=== PATIENT | female | born 1940 | race Caucasian/White ===

== ENCOUNTER → 2022-03-18 | Outpatient (CLI) | payer MEDICARE, OTHER | LOC: M WHC 09:46 | PROVIDERS: ATTEND Family Medicine | DX: Z12.31 Encounter for screening mammogram for malignant neoplasm of breast (principal); M81.0 Age-related osteoporosis without current pathological fracture ==

== ENCOUNTER 2022-12-11 02:44 | Observation (INO) | payer MEDICARE, BC ==
[~2022-12-11] VITALS: Ht 152.4 cm; Wt 87.6 kg
[2022-12-11] MEDS ORDERED: METOPROLOL TART 25 MG TABLET PO ONE (03:40)
[2022-12-11 04:01] LABS: BASO # 0.1 10^3/uL (0.0-0.2); BASO % 0.8 % (0.0-1.0); EOS # 0.3 10^3/uL (0.0-0.5); EOS % 3.8 % (0.0-3.0); HEMATOCRIT 39.9 % (36.0-47.0); HEMOGLOBIN 13.4 g/dl (12.0-15.5); LYMPH # 2.1 10^3/uL (1.5-5.0); LYMPH % 27.8 % (24.0-44.0); MEAN CORPUSCULAR HEMOGLOBIN 31.2 pg (27.0-33.0); MEAN CORPUSCULAR HGB CONC 33.6 g/dl (32.0-36.5); MEAN CORPUSCULAR VOLUME 92.8 fl (80.0-96.0); MONO # 0.6 10^3/uL (0.0-0.8); MONO % 7.9 % (2.0-8.0); NEUTROPHILS # 4.4 10^3/uL (1.5-8.5); NEUTROPHILS % 59.4 % (36.0-66.0); PLATELET COUNT, AUTOMATED 275 10^3/uL (150-450); WHITE BLOOD COUNT 7.5 10^3/uL (4.0-10.0)
[2022-12-11 04:24] LABS: BLOOD UREA NITROGEN 21 MG/DL (9-23); CALCIUM LEVEL 8.3 MG/DL (8.3-10.6); CARBON DIOXIDE LEVEL 25 MMOL/L (20-31); CHLORIDE LEVEL 107 MMOL/L (98-107); CREATININE FOR GFR 0.86 MG/DL (0.55-1.30); GLOMERULAR FILTRATION RATE > 60.0 (>32); GLUCOSE, FASTING 116 MG/DL (74-106); MAGNESIUM LEVEL 2.1 MG/DL (1.8-2.4); POTASSIUM SERUM 4.6 MMOL/L (3.5-5.1); SODIUM LEVEL 140 MMOL/L (136-145)
[2022-12-11 04:26] LABS: FREE T4 1.27 NG/DL (0.89-1.76); THYROID STIMULATING HORMONE 2.439 uIU/ML (0.55-4.78)
[2022-12-11] MEDS: METOPROLOL 5 MG/5 ML VIAL IV SCH ×10 (04:30→06:03)
[2022-12-11] MEDS ORDERED: ISOVUE-370 76% 100ML VIAL As Ordered ONE (05:28)
[2022-12-11] MEDS ORDERED: ACETAMINOPHEN TAB 650MG DOSE (2X325MG) PO PRN (06:15)
[2022-12-11] MEDS ORDERED: ASPIRIN 81MG CHEW TABLET PO ONE (06:15)
[2022-12-11] MEDS ORDERED: SYNT112T2 PO (06:47)
[2022-12-11] MEDS ORDERED: METO25TA4 PO (06:47)
[2022-12-11] MEDS ORDERED: ELIQ5TAB PO (06:47)
[2022-12-11] MEDS ORDERED: ADVA115A INH (06:47)
[2022-12-11] MEDS ORDERED: TRAM50TA2 PO (06:47)
[2022-12-11] MEDS ORDERED: IRBE300T7 PO (06:47)
[2022-12-11] MEDS ORDERED: ALBU8.5H INH (06:47)
[2022-12-11] MEDS ORDERED: LORA-1041 PO (06:47)
[2022-12-11] MEDS ORDERED: OMEG10002 PO (06:47)
[2022-12-11] MEDS ORDERED: ACET-897 PO (06:47)
[2022-12-11] MEDS ORDERED: MELA1TAB9 PO (06:47)
[2022-12-11] MEDS ORDERED: HOME MED LIST COMPLETE! XX SCH (06:50)
[2022-12-11 07:54] LABS: PROCALCITONIN <0.04 ng/ml
[2022-12-11] MEDS: ADVAIR HFA 115/21MCG INHALER INH SCH ×2 (08:00→19:56)
[2022-12-11] MEDS ORDERED: ALBUTEROL 90 MCG/ACT 8GM HFA INHALER INH PRN (10:40)
[2022-12-11] MEDS ORDERED: traMADol 50 MG TAB PO PRN ×2 (10:40)
[2022-12-11 10:58] LABS: ALBUMIN 3.5 G/DL (3.2-5.2); ALKALINE PHOSPHATASE 101 U/L (46-116); ALT/SGPT 25 U/L (7.0-40); AST/SGOT 21 U/L (<34); BILIRUBIN,DIRECT 0.3 MG/DL (<0.4); BILIRUBIN,TOTAL 0.9 MG/DL (0.3-1.2); TOTAL PROTEIN 6.1 G/DL (5.7-8.2)
[2022-12-11] MEDS: METOPROLOL TART 25 MG TABLET PO SCH ×2 (12:23→17:49)
[2022-12-11 13:58] LABS: HEMOGLOBIN A1c 4.8 % (4.0-6.0)
[2022-12-11 16:04] VITALS: BP 138/84; TEMP 97.5; O2SAT 93
[2022-12-11 19:39] VITALS: BP 103/61; TEMP 98.3; O2SAT 95
[2022-12-11] MEDS: LEVALBUTEROL 1.25MG 0.5ML CONCENTRATE NEB INH SCH (19:56)
[2022-12-11] MEDS: APIXABAN 5 MG TAB (ELIQUIS) PO SCH (20:44)
[2022-12-11] MEDS ORDERED: METOPROLOL TART 25 MG TABLET PO SCH (21:00)
[2022-12-12 00:12] VITALS: BP 121/71; TEMP 96.6; O2SAT 94
[2022-12-12] MEDS: dilTIAZem 30 MG TAB PO SCH ×3 (00:29→12:11)
[2022-12-12] MEDS: LEVALBUTEROL 1.25MG 0.5ML CONCENTRATE NEB INH SCH ×2 (01:17→08:00)
[2022-12-12 04:01] VITALS: BP 106/59; TEMP 98.6; O2SAT 96
[2022-12-12 05:06] LABS: HEMATOCRIT 37.1 % (36.0-47.0); HEMOGLOBIN 12.4 g/dl (12.0-15.5); MEAN CORPUSCULAR HEMOGLOBIN 31.2 pg (27.0-33.0); MEAN CORPUSCULAR HGB CONC 33.4 g/dl (32.0-36.5); MEAN CORPUSCULAR VOLUME 93.5 fl (80.0-96.0); PLATELET COUNT, AUTOMATED 242 10^3/uL (150-450); RED BLOOD COUNT 3.97 10^6/uL (4.00-5.40)
[2022-12-12 05:41] LABS: BLOOD UREA NITROGEN 23 MG/DL (9-23); CALCIUM LEVEL 8.3 MG/DL (8.3-10.6); CARBON DIOXIDE LEVEL 29 MMOL/L (20-31); CHLORIDE LEVEL 106 MMOL/L (98-107); GLOMERULAR FILTRATION RATE > 60.0 (>32); GLUCOSE, FASTING 95 MG/DL (74-106); MAGNESIUM LEVEL 1.9 MG/DL (1.8-2.4); POTASSIUM SERUM 3.9 MMOL/L (3.5-5.1); SODIUM LEVEL 143 MMOL/L (136-145)
[2022-12-12] MEDS ORDERED: LEVOTHYROXINE 112MCG TABLET (0.112MG) PO SCH (06:00)
[2022-12-12 07:31] VITALS: BP 120/71; TEMP 98.2; O2SAT 96
[2022-12-12] MEDS: ADVAIR HFA 115/21MCG INHALER INH SCH (07:59)
[2022-12-12 08:02] LABS: CHOLESTEROL LEVEL 159 MG/DL (<200); CHOLESTEROL RISK RATIO 2.81 (<5); HDL CHOLESTEROL 56.4 MG/DL (>40); LDL CHOLESTEROL 86.6 MG/DL (<100); NON-HDL-C 102.6 MG/DL; TRIGLYCERIDES LEVEL 80 MG/DL (<150)
[2022-12-12] MEDS: APIXABAN 5 MG TAB (ELIQUIS) PO SCH (08:44)
[2022-12-12] MEDS ORDERED: VANICREAM MOISTURIZING SKIN CREAM 113GM TUBE TOP SCH (09:00)
[2022-12-12] MEDS ORDERED: ATOR1TAB21 PO (11:39)
[2022-12-12] MEDS ORDERED: DILT120C78 PO ×2 (11:39→12:50)
[2022-12-12] MEDS ORDERED: LEVAINH INH (11:39)
[2022-12-12 12:00] VITALS: BP_SYST 125; BP_SYST 133; BP_DIAS 60; BP_DIAS 74; TEMP 98.4; O2SAT 93; O2SAT 99
[2022-12-12 12:11] VITALS: BP 125/74
== END 2022-12-12 13:26 | disposition home or self-care (01) ==
LOC: EDBD 02:44 → M ED 02:44 → M ED INP 02:45 → M PCU 15:58
PROVIDERS: ADMIT Internal Medicine; ATTEND Internal Medicine
DX: R26.2 Difficulty in walking, not elsewhere classified (principal); R47.1 Dysarthria and anarthria; M79.602 Pain in left arm; R53.1 Weakness; R51.9 Headache, unspecified; I48.91 Unspecified atrial fibrillation; J98.4 Other disorders of lung; I51.7 Cardiomegaly; I25.10 Atherosclerotic heart disease of native coronary artery without angina pectoris; J45.909 Unspecified asthma, uncomplicated; E89.0 Postprocedural hypothyroidism; Z90.89 Acquired absence of other organs; R42 Dizziness and giddiness; M19.90 Unspecified osteoarthritis, unspecified site; R06.02 Shortness of breath; R07.9 Chest pain, unspecified; R93.5 Abnormal findings on diagnostic imaging of other abdominal regions, including retroperitoneum; I67.82 Cerebral ischemia; G31.9 Degenerative disease of nervous system, unspecified; I67.2 Cerebral atherosclerosis; Z88.2 Allergy status to sulfonamides; Z79.899 Other long term (current) drug therapy; Z79.890 Hormone replacement therapy; Z79.01 Long term (current) use of anticoagulants
CPT/HCPCS: 36415; 70450; 70544; 70547; 70551; 71045; 71275; 80048; 80061; 80076; 83036; 83735; 83880; 84145; 84439; 84443; 84484; 85025; 85027; 87635; 93005; 93041; 93306; 94640; 94760; 96374; 96375; 96376; 97116; 97161; 99285; G0378; Q9967

== ENCOUNTER → 2023-03-19 | Outpatient (CLI) | payer MEDICARE, BC ==
[~2023-03-19] MED LIST: ACET-897 PO; ADVA115A INH; ALBU8.5H INH; ATOR1TAB21 PO; DILT120C78 PO; ELIQ5TAB PO; IRBE300T7 PO; LEVAINH INH; LORA-1041 PO; MELA1TAB9 PO; METO25TA4 PO; OMEG10002 PO; SYNT112T2 PO; TRAM50TA2 PO
== END ==
LOC: M SLEEP 20:00
PROVIDERS: ATTEND Nurse Practitioner Family
DX: R40.0 Somnolence (principal); G47.33 Obstructive sleep apnea (adult) (pediatric)

== ENCOUNTER → 2023-05-09 | Outpatient (CLI) | payer MEDICARE, BC ==
[~2023-05-09] MED LIST changes: +IRBE300T25 PO; -IRBE300T7 PO
== END ==
LOC: M WHC 10:21
PROVIDERS: ATTEND Family Medicine
DX: Z12.31 Encounter for screening mammogram for malignant neoplasm of breast (principal)

== ENCOUNTER → 2024-07-12 | Outpatient (CLI) | payer MEDICARE, BC ==
[~2024-07-12] MED LIST changes: +LEVA15HF2 INH; -LEVAINH INH; -MELA1TAB9 PO; +MELA5TAB58 PO
== END ==
LOC: M WHC 11:47
PROVIDERS: ATTEND Family Medicine
DX: Z12.31 Encounter for screening mammogram for malignant neoplasm of breast (principal)

== ENCOUNTER 2024-08-09 04:47 | Emergency (ER) | payer MEDICARE, BC ==
[~2024-08-09] VITALS: Ht 152.4 cm; Wt 92.5 kg
[~2024-08-09 04:47] MED LIST changes: -HOLTER MONITOR XX; -MECL-86 PO
[2024-08-09 05:00] VITALS: BP 137/94; TEMP 97.1; O2SAT 97
[2024-08-09 05:15] VITALS: BP 147/79; O2SAT 97
[2024-08-09] MEDS ORDERED: ISOVUE-370 76% 100ML VIAL As Ordered ONE (05:18)
[2024-08-09 05:30] VITALS: BP 124/87; O2SAT 97
[2024-08-09 05:39] LABS: BASO % 0.5 % (0.0-1.0); EOS # 0.1 10^3/uL (0.0-0.5); EOS % 1.5 % (0.0-3.0); HEMATOCRIT 43.6 % (36.0-47.0); HEMOGLOBIN 14.8 g/dl (12.0-15.5); LYMPH # 1.8 10^3/uL (1.5-5.0); LYMPH % 27.7 % (24.0-44.0); MEAN CORPUSCULAR HEMOGLOBIN 31.8 pg (27.0-33.0); MEAN CORPUSCULAR HGB CONC 33.9 g/dl (32.0-36.5); MEAN CORPUSCULAR VOLUME 93.6 fl (80.0-96.0); MONO # 0.6 10^3/uL (0.0-0.8); MONO % 9.7 % (2.0-8.0); NEUTROPHILS % 60.3 % (36.0-66.0); PLATELET COUNT, AUTOMATED 274 10^3/uL (150-450); RED BLOOD COUNT 4.66 10^6/uL (4.00-5.40); WHITE BLOOD COUNT 6.6 10^3/uL (4.0-10.0)
[2024-08-09 05:45] VITALS: BP 116/72; O2SAT 97
[2024-08-09 05:52] LABS: ALBUMIN 3.7 G/DL (3.2-5.2); CALCIUM LEVEL 8.7 MG/DL (8.3-10.6); CREATININE FOR GFR 0.87 MG/DL (0.55-1.30); GLOMERULAR FILTRATION RATE 66.1 (>32); POTASSIUM SERUM 4.1 MMOL/L (3.5-5.1); TOTAL PROTEIN 6.3 G/DL (5.7-8.2)
[2024-08-09 06:00] VITALS: BP 120/83; O2SAT 96
[2024-08-09 07:47] LABS: INR 1.2; PARTIAL THROMBOPLASTIN TIME 32.5 SECONDS (24.8-34.2); PROTHROMBIN TIME 15.5 SECONDS (12.5-14.5)
[2024-08-09 09:00] LABS: FREE T4 1.34 NG/DL (0.89-1.76); THYROID STIMULATING HORMONE 1.587 uIU/ML (0.55-4.78)
[2024-08-09] MEDS: MECLIZINE 25 MG TABLET PO SCH (09:25)
[2024-08-09 10:30] VITALS: BP 122/64; TEMP 97.4; O2SAT 97
[2024-08-09] MEDS ORDERED: MECL-86 PO (10:34)
[2024-08-09] MEDS ORDERED: HOLTER MONITOR XX (10:37)
== END 2024-08-09 10:58 | disposition home or self-care (01) ==
LOC: M ED 04:47 → EDBD 04:47 → M ED 10:58
DX: H81.10 Benign paroxysmal vertigo, unspecified ear (principal); I48.20 Chronic atrial fibrillation, unspecified; I10 Essential (primary) hypertension; J45.909 Unspecified asthma, uncomplicated; E04.2 Nontoxic multinodular goiter; M19.90 Unspecified osteoarthritis, unspecified site; Z96.653 Presence of artificial knee joint, bilateral; Z79.01 Long term (current) use of anticoagulants; Z79.899 Other long term (current) drug therapy; Z88.2 Allergy status to sulfonamides
CPT/HCPCS: 70450; 70496; 70498; 71045; 80047; 80053; 84439; 84443; 85025; 85610; 85730; 93005; 93041; 94760; 99285; Q9967

== ENCOUNTER → 2024-08-09 | Outpatient (CLI) | payer MEDICARE, BC ==
[~2024-08-09] MED LIST changes: +HOLTER MONITOR XX; +MECL-86 PO
== END ==
LOC: M EKG 11:46
DX: I48.91 Unspecified atrial fibrillation (principal)

== ENCOUNTER → 2024-12-01 | Outpatient (REF) | payer MEDICARE, BC ==
[~2024-12-01] MED LIST changes: +HOLTER MONITOR XX; +MECL-86 PO
[2024-12-01 14:50] LABS: ALT/SGPT 14.0 U/L (7.0-40); AST/SGOT 19.0 U/L (<34); CALCIUM LEVEL 8.5 MG/DL (8.3-10.6); CARBON DIOXIDE LEVEL 32.0 MMOL/L (20-31); CHLORIDE LEVEL 99.0 MMOL/L (98-107); CREATININE FOR GFR 1.04 MG/DL (0.55-1.30); GLOMERULAR FILTRATION RATE 53.0 (>32); POTASSIUM SERUM 4.0 MMOL/L (3.5-5.1); SODIUM LEVEL 142.0 MMOL/L (136-145)
== END ==
LOC: M LABDRWAD 13:07
PROVIDERS: ATTEND Nurse Practitioner Acute Care
DX: R06.02 Shortness of breath (principal); I48.21 Permanent atrial fibrillation; R60.0 Localized edema